=== PATIENT | female | born 1950 | race Caucasian/White ===

== ENCOUNTER 2017-12-08 18:41 | Inpatient (IN) | payer OTHER ==
[~2017-12-08] VITALS: Ht 154.9 cm; Wt 61.2 kg
[2017-12-08 18:48] VITALS: Ht 154.9 cm; Wt 61.2 kg
[2017-12-08 20:31] LABS: microscopic required? NO
[2017-12-08 20:46] LABS: UA SPECIFIC GRAVITY <=1.005 (1.005-1.035); urine erythrocyte NEGATIVE (NEGATIVE)
[2017-12-08 20:51] LABS: BASOPHIL % 0.7 % (0-2); PLATELET COUNT 238 x10^3mcL (130-400); RED CELL DISTRIBUTION WIDTH 13.8 % (11.5-14.5)
[2017-12-08 21:00] LABS: AMPHETAMINE QUAL UR NONE DETECTED (NEG <=1000)
[2017-12-08 21:06] LABS: ALBUMIN 3.8 g/dL (3.4-5.0); ALKALINE PHOSPHATASE 51 U/L (46-116); ALT/SGPT 20 U/L (14-59); AMYLASE 89 U/L (25-115); AST/SGOT 26 U/L (15-37); BILIRUBIN TOTAL 1.53 mg/dL (0.20-1.00); CARBON DIOXIDE 30.9 mmol/L (21-32); CHLORIDE SERUM 81 mmol/L (98-107); CHOLESTEROL 189 mg/dL (<200); CREATININE SERUM 0.9 mg/dL (0.6-1.0); GFR1 > 60 mL/min; GLUCOSE SERUM 105 mg/dL (74-106); LIPASE 145 IU/L (73-393); POTASSIUM SERUM 3.3 mmol/L (3.5-5.1); T4(THYROXINE) 9.1 ug/dL (4.7-13.3); TOTAL PROTEIN, SERUM 6.7 g/dL (6.4-8.2)
[2017-12-08 21:13] LABS: HDL CHOLESTEROL 74 mg/dL (40-60); SODIUM SERUM 119 mmol/L (136-145)
[2017-12-09 01:05] LABS: MAGNESIUM 1.4 mg/dL (1.8-2.4); PHOSPHOROUS 3.4 mg/dL (2.5-4.9)
[2017-12-09 02:32] VITALS: BP 154/52
[2017-12-09] MEDS ORDERED: BIOTIN1 MG PO (03:12)
[2017-12-09] MEDS ORDERED: ASCORBIC ACID500 M1 PO (03:12)
[2017-12-09] MEDS ORDERED: LISINOPRIL40 MG PO (03:13)
[2017-12-09] MEDS ORDERED: CALCIUM 500+D1 EACH PO (03:13)
[2017-12-09] MEDS ORDERED: LOVAZA1 G1 PO (03:15)
[2017-12-09] MEDS ORDERED: METOPROLOL SUC100 M2 PO (03:15)
[2017-12-09] MEDS ORDERED: HYDROCHLOROTH12.5 M2 PO (03:16)
[2017-12-09] MEDS ORDERED: METOPROLOL TAR100 MG PO (03:17)
[2017-12-09 05:06] VITALS: BP 127/41
[2017-12-09 06:44] LABS: BASOPHIL % 0.7 % (0-2); CALCIUM 8.7 mg/dL (8.5-10.1); CARBON DIOXIDE 29.8 mmol/L (21-32); CHLORIDE SERUM 93 mmol/L (98-107); CREATININE SERUM 0.9 mg/dL (0.6-1.0); GFR1 > 60 mL/min; GLUCOSE SERUM 98 mg/dL (74-106); MAGNESIUM 1.6 mg/dL (1.8-2.4); PLATELET COUNT 215 x10^3mcL (130-400); POTASSIUM SERUM 3.9 mmol/L (3.5-5.1); SODIUM SERUM 130 mmol/L (136-145)
[2017-12-09 09:00] VITALS: BP 119/48
[2017-12-09 10:30] LABS: CALCIUM 8.9 mg/dL (8.5-10.1); CARBON DIOXIDE 27.6 mmol/L (21-32); POTASSIUM SERUM 3.2 mmol/L (3.5-5.1)
[2017-12-09 12:44] LABS: CALCIUM 8.7 mg/dL (8.5-10.1); CARBON DIOXIDE 30.8 mmol/L (21-32); POTASSIUM SERUM 3.8 mmol/L (3.5-5.1)
[2017-12-09 12:55] VITALS: BP 126/49
[2017-12-09 16:35] VITALS: BP 135/45
[2017-12-09 17:40] LABS: CALCIUM 9.2 mg/dL (8.5-10.1); CARBON DIOXIDE 31.2 mmol/L (21-32); CHLORIDE SERUM 95 mmol/L (98-107); CREATININE SERUM 0.9 mg/dL (0.6-1.0); GFR1 > 60 mL/min; GLUCOSE SERUM 104 mg/dL (74-106); SODIUM SERUM 133 mmol/L (136-145)
[2017-12-09 22:22] VITALS: BP 122/46
[2017-12-10] VITALS (7 sets, daily range): BP systolic 115–148; BP diastolic 47–75
[2017-12-10 16:32] LABS: BASOPHIL % 0.8 % (0-2); PLATELET COUNT 247 x10^3mcL (130-400); RED CELL DISTRIBUTION WIDTH 14.3 % (11.5-14.5)
[2017-12-10 16:58] LABS: CALCIUM 9.7 mg/dL (8.5-10.1); CARBON DIOXIDE 31.7 mmol/L (21-32); MAGNESIUM 1.5 mg/dL (1.8-2.4); PHOSPHOROUS 3.2 mg/dL (2.5-4.9); POTASSIUM SERUM 4.2 mmol/L (3.5-5.1)
[2017-12-11 05:45] VITALS: BP 150/61
[2017-12-11 06:14] LABS: BASOPHIL % 0.7 % (0-2); PLATELET COUNT 209 x10^3mcL (130-400); RED CELL DISTRIBUTION WIDTH 14.2 % (11.5-14.5)
[2017-12-11 06:38] LABS: CALCIUM 9.1 mg/dL (8.5-10.1); CARBON DIOXIDE 28.8 mmol/L (21-32); CHLORIDE SERUM 99 mmol/L (98-107); CREATININE SERUM 0.9 mg/dL (0.6-1.0); GFR1 > 60 mL/min; GLUCOSE SERUM 95 mg/dL (74-106); MAGNESIUM 1.7 mg/dL (1.8-2.4); PHOSPHOROUS 3.6 mg/dL (2.5-4.9); POTASSIUM SERUM 4.4 mmol/L (3.5-5.1); SODIUM SERUM 135 mmol/L (136-145)
[2017-12-11] MEDS ORDERED: L20 PO (09:53)
[2017-12-11] MEDS ORDERED: KLOR-CON M2020 MEQ PO (09:54)
[2017-12-11 10:39] VITALS: BP 140/50
[2017-12-11] MEDS ORDERED: GOOD SENSE ASPI81 M3 PO (12:31)
[2017-12-11] MEDS ORDERED: LIPI10 PO (12:31)
[2017-12-11 13:56] VITALS: BP 140/50
[2017-12-11 14:05] VITALS: BP 156/61
== END 2017-12-11 14:51 | disposition home or self-care (01) | DRG 643 ==
LOC: ED 18:41 → DU 12-09 00:11
PROVIDERS: Emergency Medicine; Family Medicine
DX: E22.2 Syndrome of inappropriate secretion of antidiuretic hormone (principal); G93.41 Metabolic encephalopathy; I42.0 Dilated cardiomyopathy; E87.6 Hypokalemia; E83.42 Hypomagnesemia; E04.1 Nontoxic single thyroid nodule; I48.91 Unspecified atrial fibrillation; I11.9 Hypertensive heart disease without heart failure; I73.9 Peripheral vascular disease, unspecified; I45.10 Unspecified right bundle-branch block; E80.6 Other disorders of bilirubin metabolism; E78.00 Pure hypercholesterolemia, unspecified; E78.5 Hyperlipidemia, unspecified; Z68.25 Body mass index [BMI] 25.0-25.9, adult; Z88.0 Allergy status to penicillin; Z88.2 Allergy status to sulfonamides; Z88.6 Allergy status to analgesic agent; Z88.8 Allergy status to other drugs, medicaments and biological substances; Z83.3 Family history of diabetes mellitus
CPT/HCPCS: 83880; 87804; J3475; J3480; J3490; J7030; Q0092; Q0163